=== PATIENT | male | born 1955 | race Two or more races ===

== ENCOUNTER 2018-10-05 14:01 | Emergency (ER) | payer SELFPAY ==
[~2018-10-05] VITALS: Ht 170.2 cm; Wt 73.0 kg
[2018-10-05] MEDS ORDERED: SODIUM CHLORIDE 0.9% 1,000 ML IV ONE (14:46)
[2018-10-05] MEDS ORDERED: AMMONIA INHALATION 1EA INH ONE (15:00)
[2018-10-05 15:36] LABS: CHLORIDE 107 mEq/L (98-107); INR 1.6; PROTHROMBIN TIME 15.9 sec (9.6-11.0)
[2018-10-05 15:39] LABS: ETHANOL BLOOD < 10 mg/dL
[2018-10-05 15:57] LABS: BASOPHILS % 0.4 % (0.0-2.0); EOSINOPHILS % 0.6 % (0.0-5.0); HEMOGLOBIN. 15.8 g/dL (14.0-18.0); LYMPHOCYTES % 23.5 % (20.0-50.0); MEAN CORPUSCULAR VOLUME 93.3 fL (80.0-94.0); MEAN PLATELET VOLUME 8.3 fl (7.4-10.4); MONOCYTES % 5.9 % (2.0-8.0); NEUTROPHILS % 69.6 % (40.0-76.0); PLATELET 284 x1000/uL (130-400); RED BLOOD CELL COUNT 4.93 mill/uL (4.7-6.1)
[2018-10-05 16:58] VITALS: BP 121/81
== END 2018-10-05 17:05 | disposition home or self-care (01) ==
LOC: ER 14:01
DX: R55 Syncope and collapse (principal); F17.200 Nicotine dependence, unspecified, uncomplicated
CPT/HCPCS: 36415; 70450; 71045; 80053; 80320; 83880; 84484; 85025; 85610; 93005; 96360; 96361; 99284; J7030; G0480